=== PATIENT | female | born 1995 | race Caucasian/White ===

== ENCOUNTER 2023-03-16 18:11 | Emergency (ER) | payer BC, SELFPAY ==
--- NOTE | ~2023-03-16 | XR_ITS ---
EXAM: XR hand LT min 3V DATE: 03/16/2023 18:47 HISTORY: trauma,dog leash injured 1st finger 1st metacarp . COMPARISON: None available. FINDINGS: Normal mineralization. No fracture or dislocation. No lytic or blastic lesion. Joint space s are maintained. No erosion or periosteal change. Soft tissues within normal limits. IMPRESSION: No acute osseous finding in the left hand. Reviewed, dictated and finalized at location K.
--- NOTE | 2023-03-16 18:19 | ED.UPPEXIN ---
HPI - Extremity Injury (Upper) General Chief Complaint: Extremity Injury, Upper Stated Complaint: lt hand injury Time Seen by Provider: 03/16/23 18:30 Source: patient Mode of arrival: ambulatory Limitations: no limitations History of Present Illness HPI narrative: Patient is a 27-year-old female who presents with left hand pain after getting pulled by dog on a leash. Patient reports pain to base of left index finger. Patient has not applied ice or taken any medication. Denies any numbness, tingling or weakness to index finger. Reports mild swelling and bruising. Related Data Home Medications Medication Instructions Recorded Confirmed loratadine 10 mg tablet (Claritin) 10 mg PO DAILY 03/05/23 03/05/23 norgestimate 0.25 mg-ethinyl 1 tablet PO DAILY 03/05/23 03/05/23 estradiol 35 mcg tablet (Sprintec (28)) Allergies Allergy/AdvReac Type Severity Reaction Status Date / Time clindamycin Allergy Unknown hives Verified 03/05/23 07:58 ibuprofen Allergy Unknown rash Verified 04/09/19 16:26 Sulfa (Sulfonamide Allergy Unknown Hives Verified 03/05/23 07:58 Antibiotics) Review of Systems Review of Systems: All systems reviewed & are unremarkable except as noted in HPI and below Constitutional: Constitutional: Denies body ache(s), Denies chills, Denies fatigue, Denies fever(s), Denies headache(s), Denies malaise and Denies weakness Eyes: Eyes: Denies blurry vision, Denies irritation and Denies loss of vision ENT: Denies otalgia, Denies headache(s), Denies nasal discharge, Denies sinus pain and Denies sore throat Cardiovascular: Cardiovascular: Denies chest pain, Denies irregular heart rhythm and Denies dyspnea Respiratory: Respiratory: Denies dyspnea Gastrointestinal: Gastrointestinal: Denies abdominal pain, Denies melena, Denies hematochezia, Denies diarrhea, Denies nausea and Denies vomiting Musculoskeletal: Musculoskeletal: Denies back pain, Denies myalgias, Reports arthralgias and Reports joint swelling Integumentary/Breasts: Skin/Breast: Denies pruritus and Denies rash Neurologic: Denies headache(s), Denies loss of vision and Denies weakness Psychiatric: Psychiatric: Reports no additional psychiatric complaints Endocrine: Endocrine: Denies fatigue PMFSH Past Medical History Medical History Encounter to establish care Migraines Seasonal allergies Surgical History Surgical History H/O oral surgery History of tonsillectomy 4 yrs old Hustle teeth removed Family History Family History Father Skin cancer Heart disease Sibling Heart disease Grandparent Diabetes mellitus Hypertension Heart disease Cerebrovascular accident Thyroid condition Grandparent Lung cancer Diabetes mellitus Hypertension Heart disease Social History Social History Smoking status: Never smoker Alcohol intake: current Alcohol use details: 2-3 drinks a month Substance use: never Comments At time of signature, agree with nursing past medical, surgical, social and family history. There is no relevant family history pertinent to the presenting complaint. Exam Const: General: cooperative, healthy appearing, comfortable, no acute distress and well nourished Nutritional Appearance: well nourished Orientation/consciousness: patient oriented x3 Limitations: no limitations HENMT: Head: normal to inspection, normocephalic and atraumatic Ears: hearing grossly normal bilaterally and external ears normal Face/Nose/Sinus: Normal external nose present, normal facial exam and face symmetric Face and sinus: normal facial exam and face symmetric Mouth: Yes lip normal Eyes: General: appearance normal, both eyes and all related structures Alignment and Position: alignment normal and pos
[2023-03-16 18:35] VITALS: BP 130/96; PULSE 88; RESP 18; TEMP 36.8; O2SAT 100
== END 2023-03-16 19:31 | disposition home or self-care (01) ==
PROVIDERS: Emergency Provider Nurse Practitioner Family; PCP Nurse Practitioner Family
DX: S63.92XA Sprain of unspecified part of left wrist and hand, initial encounter (principal); X50.0XXA Overexertion from strenuous movement or load, initial encounter; Y93.K1 Activity, walking an animal
CPT/HCPCS: 73130; 99213; G0463

== ENCOUNTER 2023-05-28 13:34 | Outpatient (CLI) | payer BC, SELFPAY ==
--- NOTE | 2023-05-28 13:47 | ECG_ITS ---
Measurements Intervals Colver Rate: 93 P: 57 CT: 130 QRS: 75 QRSD: 89 T: 28 QT: 363 QTc: 453 Interpretive Statements SINUS RHYTHM WITH SINUS ARRHYTHMIA POSSIBLE RIGHT VENTRICULAR CONDUCTION DELAY NONSPECIFIC ST SEGMENT ABNORMALITY Electronically Signed On 05-29-2023 13:06:23 [employer]ITICAL WORK[employer] by JoseR afael Cai M.D.
--- NOTE | 2023-05-28 13:48 | ECHO_ITS ---
Patient Info Name: Mandie Mosley Age: 27 years : 1995 Gender: Female Ht: 63 in Wt: 128 lbs BSA: 1.61 m2 HR: 75 bpm BP: 136 / 81 mmHg Technical Quality: Good Exam Date: 05/28/2023 1:57 PM Exam Location: Echo Lab Patient Status: Outpatient Admit Date: 05/28/2023 Staff Ordering Physician: Funmilayo Novoa NP Cafeteria Table Attendant: Fabienne Benoit RDCS Attending Provider: Funmilayo Novoa NP Exam Type: CA echo doppler color flow Study Info Indications Z82.79 - FAMILY HISTORY OF OTHER CONGENITAL MALFORMATIONS Complete two-dimensional, color flow and Doppler transthoracic echocardiogram is performed. Summary 1. Complete two-dimensional, color flow and Doppler transthoracic echocardiogram is performed. 2. Left ventricular chamber dimension is normal. 3. Left ventricular systolic function is normal, estimated at 65-70%. 4. The left ventricular diastolic function is normal. 5. E/e' 6 is not elevated. 6. There is trace tricuspid valve regurgitation. 7. No pulmonary hypertension, estimated pulmonary arterial systolic pressure is 15 mmHg. Left Ventricle E/e' 6 is not elevated. Left ventricular chamber dimension is normal. Left ventricular systolic function is normal, estimated at 65-70%. The left ventricular diastolic function is normal. Right Ventricle Right ventricular chamber dimension is normal. Right ventricular systolic function is normal. Left Atria Left atrial chamber dimension is normal. Right Atria Right atrial chamber dimension is normal. Aortic Valve The aortic valve is trileaflet. There is no aortic valve stenosis. There is no aortic valve regurgitation. Pulmonic Valve There is no pulmonic regurgitation. Mitral Valve There is no mitral valve stenosis. There is no mitral valve regurgitation. Tricuspid Valve There is trace tricuspid valve regurgitation. No pulmonary hypertension, estimated pulmonary arterial systolic pressure is 15 mmHg. Pericardium/Pleural There is no pericardial effusion. Inferior Vena Cava Normal inferior vena cava with >50% collapse upon inspiration consistent with normal right atrial pressure, 5 mmHg. Aorta The aortic root size at the sinus of Valsalva is normal. Left Ventricular Outflow Tract Name Value Normal LVOT 2D LVOT Diameter 1.9 cm LVOT Doppler LVOT Peak Gradient 7 mmHg LVOT Mean Gradient 4 mmHg LVOT VTI 26 cm LVOT VTI/AV VTI Ratio 0.9 LVOT Stroke Volume 71 ml LVOT CO 5.5 l/min LVOT CI 3.4 l/min/m2 Pulmonic Valve Name Value Normal RVOT Doppler RVOT Peak Gradient 3 mmHg PV Doppler PV Peak Gradient 4 mmHg Mitral Valve
== END 2023-05-28 13:35 | disposition home or self-care (01) ==
PROVIDERS: PCP Nurse Practitioner Family; Visit Provider Nurse Practitioner Family
DX: I45.9 Conduction disorder, unspecified (principal); Z82.49 Family history of ischemic heart disease and other diseases of the circulatory system; Z82.79 Family history of other congenital malformations, deformations and chromosomal abnormalities
CPT/HCPCS: 93005; 93306

== ENCOUNTER 2023-07-14 09:42 | Outpatient (CLI) | payer BC, SELFPAY ==
[2023-07-14 10:43] LABS: Strep Group A RT-PCR NOT DETECTED (Negative)
[2023-07-14 11:03] LABS: Influenza A QL RT-PCR Negative (Negative); Influenza B QL RT-PCR Negative (Negative); RSV RNA, RT-PCR Negative (Negative); SARS-CoV-2 RNA PCR Negative (Negative)
== END 2023-07-14 09:43 | disposition home or self-care (01) ==
LOC: ANHLAB 09:43
PROVIDERS: PCP Nurse Practitioner Family; Visit Provider Nurse Practitioner Family
DX: J11.1 Influenza due to unidentified influenza virus with other respiratory manifestations (principal)
CPT/HCPCS: 87637; 87651